=== PATIENT | female | born 1950 | race Caucasian/White ===

== ENCOUNTER → 2018-08-11 11:51 | Outpatient (CLI) | payer MEDICARE, SELFPAY ==
[2018-08-11 12:40] LABS: Allen Test POS; Base Excess 19 mmol/L (-2 to +2); Bicarbonate 45.7 mmol/L (22-26); Blood Gas Specimen Type ART; O2 Delivery Device Nasal Can; PO2 156 mmHG (75-100); SITE R Radial; SO2 99 % (95-99); Time Given 1220; Total Carbon Dioxide 49 mmol/L; pCO2 103.1 mmHg (35-45); pH 7.25 (7.35-7.45)
--- NOTE | 2018-08-11 13:27 | CPS ---
Results faxed to Dr. Cunningham's office. Results also called to Dr. Cunningham's office and read back by RN.
== END ==
LOC: LAB 11:58 → CVS 12:00
PROVIDERS: Family Provider Internal Medicine; PCP Internal Medicine; Referring Provider Internal Medicine Pulmonary Disease; Visit Provider Internal Medicine Pulmonary Disease
DX: G47.33 Obstructive sleep apnea (adult) (pediatric) (principal); R09.02 Hypoxemia
CPT/HCPCS: 36600; 82803

== ENCOUNTER → 2018-11-10 11:02 | Outpatient (CLI) | payer MEDICARE, SELFPAY ==
--- NOTE | 2018-11-10 11:06 | RAD_ITS ---
STUDY: X-RAY CHEST REASON FOR EXAM: Female, 68 years old. Worsening shortness of breath TECHNIQUE: PA and lateral views of the chest. COMPARISON: 10/23/2015 FINDINGS: Stable elevation of the right hemidiaphragm Stable interstitial changes in both lung arriaga. There is a question of increasing soft tissue density inferior and lateral to the calcified aortic arch. Consider further evaluation with chest CT as this may represent adenopathy. Sternal cerclage wires are present from a prior sternotomy. The patient is status post mitral valve replacement. Normal mediastinum and seymour. Normal visualized pulmonary arteries. There is atherosclerotic calcification of the aortic arch with tortuosity. Normal visualized thoracic spine. Normal visualized ribs, clavicles, and shoulders. There is no demonstrated abnormality of the visualized soft tissue structures of the upper abdomen. RAD/Chest PA and Lateral IMPRESSION: Stable elevation of the right hemidiaphragm with chronic interstitial changes. No superimposed infiltrate, or effusion. New subtle fullness in the left suprahilar region compared to the previous study. This could represent adenopathy and further evaluation with chest CT is recommended Electronically Signed: Philip Cross MD at 13:33 EDT , Service support ,
== END ==
PROVIDERS: Family Provider Internal Medicine; PCP Internal Medicine; Referring Provider Internal Medicine Pulmonary Disease; Visit Provider Internal Medicine Pulmonary Disease
DX: R06.00 Dyspnea, unspecified (principal); J96.90 Respiratory failure, unspecified, unspecified whether with hypoxia or hypercapnia
CPT/HCPCS: 71046